=== PATIENT | male | born 1965 | race Caucasian/White ===

== ENCOUNTER → 2021-05-24 | Outpatient (CLI) | payer SELFPAY | END | disposition home or self-care (01) | LOC: LAB SHORT 11:30 | DX: R30.0 Dysuria (principal) | CPT/HCPCS: 87086 ==

== ENCOUNTER 2022-08-30 12:04 | Inpatient (IN) | payer OTHER ==
[~2022-08-30] VITALS: Ht 185.4 cm; Wt 104.4 kg
[2022-08-30 13:01] LABS: BASOPHILS ABSOLUTE AUTO 0.03 K/mm3 (0.00-0.23); BASOPHILS PERCENT AUTO 0 % (0-2); EOSINOPHILS ABSOLUTE AUTO 0.01 K/mm3 (0.00-0.68); EOSINOPHILS PERCENT AUTO 0 % (0-6); Hematocrit 46.5 % (37.0-53.0); Hemoglobin 16.7 g/dL (13.5-17.5); IMMATURE GRAN ABSOLUTE AUTO 0.02 K/mm3 (0.00-0.10); IMMATURE GRAN PERCENT AUTO 0 % (0-1); LYMPHOCYTES ABSOLUTE AUTO 1.85 K/mm3 (0.84-5.20); LYMPHOCYTES PERCENT AUTO 21 % (21-46); MONOCYTES ABSOLUTE AUTO 0.51 K/mm3 (0.16-1.47); MONOCYTES PERCENT AUTO 6 % (4-13); Mean Corpuscular HGB Conc 35.9 g/dL (31.5-36.5); Mean Corpuscular Volume 92 fL (80-100); Mean Platelet Volume 9.4 fL (9.1-12.4); NEUTROPHILS ABSOLUTE AUTO 6.22 K/mm3 (1.96-9.15); NEUTROPHILS PERCENT AUTO 72 % (41-73); Platelet Count 309 K/mm3 (150-400); RDW Coefficient Variation 11.6 % (11.7-14.2); RDW Standard Deviation 39.6 fL (35.1-46.3); Red Blood Cell Count 5.06 M/mm3 (4.30-5.90); White Blood Cell Count 8.64 K/mm3 (4.00-11.30)
[2022-08-30 13:05] LABS: Albumin, Blood 4.4 g/dL (3.4-5.0); Albumin/Globulin Ratio 1.3 (0.8-1.8); Bilirubin, Total 0.6 mg/dL (0.1-1.0); Bun/Creatinine Ratio 11.6 (12.0-20.0); Calcium, Blood 9.5 mg/dL (8.5-10.1); Creatinine, Blood 1.12 mg/dL (0.60-1.20); Globulin, Blood 3.4 g/dL (2.2-4.0); Total Protein, Blood 7.8 g/dL (6.4-8.2)
[2022-08-30 13:16] LABS: Magnesium, Blood 2.5 mg/dL (1.6-2.4)
[2022-08-30 13:18] LABS: Thyroid Stimulating Hormone 0.825 uIU/mL (0.360-4.800)
[2022-08-30 16:40] LABS: Source, Urine Clean Catch
[2022-08-30 16:50] LABS: Appearance, Urine Clear (Clear); Bilirubin, Urine Neg (Neg); Blood, Urine 1+ (Neg); Color, Urine Yellow (P-Yellow); Glucose Qualitative, Urine Neg (Neg); Ketones, Urine 1+ (Neg); Leukocyte Esterase, Urine Neg (Neg); Nitrite, Urine Neg (Neg); Protein, Urine Neg (Neg); Specific Gravity, Urine 1.015 (1.003-1.022); Urobilinogen, Urine NORM (Normal)
[2022-08-30] MEDS ORDERED: LISI20 PO (16:51)
[2022-08-30 17:16] LABS: U Amphetamine Screen Not Detected; U Barbituate Screen Not Detected; U Benzodiazapine Screen Not Detected; U Buprenorphine Screen Not Detected; U Cannabinoids Screen Not Detected; U Cocaine Screen Not Detected; U Methadone Screen Not Detected; U Methamphetamine Screen Not Detected; U Opiates Screen Not Detected; U Oxycodone Screen Not Detected; U Phencyclidine Screen Not Detected; U Propoxyphene Screen Not Detected
[2022-08-30 17:17] LABS: Bacteria Few /hpf; Squamous Epithelial Cells Rare /hpf (Few); White Blood Cells, Urine 0-2 /hpf (0-5)
--- NOTE | 2022-08-30 18:30 | NUR ---
ADMIT/SHIFT SUMMARY: PATIENT ADMIT TO PCU 12. ABLE TO STAND AND TRANSFER. NEURO WNL. DENIES N/T. PERRLA. DENIES ANY PAIN. ON ROOM AIR SATING MID-HIGH 90'S. DENIES SOB. LUNGS SOUNDING CLEAR. TELE SHOWING AFIB WITH HR 110-160'S. CARDIZEM GTT IN PLACE AT 15MG/HR. NO SIGNS OF EDEMA. BP STABLE. DENOES CHEST PAIN/PRESSURE/PALPITATIONS. AT BEDSIDE AND HELPING WITH ADMIT QUESTIONS. DENIES ABDOMINAL PAIN/NAUSEA. EATING WNL. URINAL PROVIDED FOR PATIENT. BED ALARM IN PLACE FOR SAFETY. ORIENTED TO ROOM/UNIT/CALL LIGHT. NS INFUSING PER EMAR. MED REC COMPLETE. WILL CONTINUE TO MONITOR AND REPORT OFF TO ONCOMING RN.
[2022-08-31 04:41] LABS: International Normalized Ratio 1.21; Prothrombin Time Results 12.5 Sec (9.7-11.5)
--- NOTE | 2022-08-31 06:00 | NUR ---
PT ANGRY, ABRUBT AND ARGUMENTATIVE WITH STAFF OVERNIGHT, ANXIOUS AND UNCOOPERATIVE WITH MOST CARES, CARDIZEM GTT AT 15MG/HR, AFIB 110-120'S, AT ONE POINT CARDIZEM WAS TITRATED DOWN TO 10 FOR AFIB IN 70'S HOWEVER RATE INCREASED AGAIN AND TITRATED BACK UP TO 15, ADEQUATE UO, NO BM, AFEBRILE, A FEW BORDERLINE/SOFT B/P'S, AT BS VERY APPRECIATIVE, APOLOGETIC AND HELPFUL
[2022-08-31 09:00] LABS: Albumin, Blood 3.5 g/dL (3.4-5.0); Albumin/Globulin Ratio 1.2 (0.8-1.8); Bilirubin, Total 0.7 mg/dL (0.1-1.0); Bun/Creatinine Ratio 13.4 (12.0-20.0); Calcium, Blood 8.7 mg/dL (8.5-10.1); Creatinine, Blood 1.12 mg/dL (0.60-1.20); Globulin, Blood 2.9 g/dL (2.2-4.0); Magnesium, Blood 2.3 mg/dL (1.6-2.4); Potassium, Blood 4.1 mmol/L (3.5-5.5); Total Protein, Blood 6.4 g/dL (6.4-8.2)
--- NOTE | 2022-08-31 17:51 | NUR ---
PT SUMMARY: PT HAS BEEN ANXIOUS MOST OF THE SHIFT, RECEIVED ONE TIME DOSE OF ATIVAN 0.5MG PO FOLLOWED BY TYLENOL FOR HEADACHE PT HAD A COUPLE OF HOURS OF SLEEP. HAS BEEN AT THE BEDSIDE ALL SHIFT. PT ASKS QUESTIONS ABOUT PLAN OF CARE INFORMATION PROVIDED. PT HAS BEEN ON CARDIZEM GTT ALL SHIFT AT 15MG/HR ECHO WAS NOT DONE TODAY DUE TO AFIB RVR HRR RANGING 110-170'S PT WAS STARTED ON PO METOPROLOL 25MG A DOSE OF TARTRATE AND SUCCINATE, WAS ALSO GIVEN A DOSE ON CARIZEM PO 30MG AND NONE WAS EFFECTIVE, ORDER RECEIVED TO START PT ON AMIODARONE GTT, BOLUS OF 150MG ONGOING AT THIS TIME, SBP SOFT 90-110, PT DENIES ANY CHEST PAIN BUT HAS SOME PALPITATIONS AND BACK PAIN ALSO RELIEVED WITH TYLENOL, PT HAS BEEN ON RA SATTING ABOVE 95%, AFEBRILE. AMIODARONE GTT NOW RUNNING AT 34.8MLS/HR TO RUN FOR 6 HRS AND TITRATE PER ORDERS. EATING AND DRINKING WITH NO ISSUES, PT HAD A BED BATH TODAY HELPED AND ASSISTED. NO OTHER ISSUES ENCOUNTERED, PT ABLE TO MAKE NEEDS KNOWN, CALL LIGHTS IN REACH WILL REPORT TO ONCOMING SHIFT
--- NOTE | 2022-08-31 21:07 | NUR ---
ASSUMPTION OF CARE THIS RN ASSUMED CARE OF PATIENT AT 1900. REPORT TAKEN FROM JAIDA RN. PATIENT IN AFIB WITH HR FLUCTUATING FROM 110-150'S. AMIO GTT BOLUS COMPLETED WITH GTT INFUSING PER EMAR. BP STABLE. AFEBRILE. SPO2 >92% ON RA. PULSES STRONG THROUGHOUT. PATIENT EXPRESSING ANXIETY TO THIS RN ABOUT MEDICATION CHANGES AND BLOOD DRAWS DUE TO PHOBIA OF NEEDLES. THIS RN PROVIDED THERAPEUTIC LISTENING AND REASSURANCE TO PATIENT. AT BEDSIDE WITH PATIENT AND STAYING OVERNIGHT TO ASSIST WITH PATIENT'S ANXIETY. THIS RN REINFORCED EDUCATION ABOUT CARDIAC MEDICATIONS THAT ARE BEING GIVEN TO HELP WITH RATE CONTROL. BED IN LOWEST POSITION AND CALL LIGHT WITHIN REACH. THIS RN WILL CONTINUE TO MONITOR AND PROVIDE INTVERNTIONS NEEDED/ORDERED DURING THIS SHIFT.
--- NOTE | 2022-08-31 22:33 | NUR ---
PATIENT UPDATE PATIENT CALLED THIS RN INTO ROOM STATING THAT HE FELT LIKE HE HAD MORE OF A COUGH AND WAS "WHEEZING". THIS RN ASSESSED VITALS AND LUNG SOUNDS TO FIND LUNG SOUNDS WERE CLEAR. AFTER SPEAKING TO PATIENT AND FURTHER THAT PATIENT DESCRIBED MORE OF A TIGHT FEELING IN CHEST LIKE HE GETS WITH ANXIETY ATTACKS AND STATED THAT HE FELT LIKE HE WAS GETTING "SHAKY" LIKE HE DOES WITH ANXIETY ATTACKS WELL. SPO2 >90%. BP STABLE. AFIB WITH HR 110-150'S. THIS RN CALLED MD MALLOY ABOUT SYMPTOMS. ORDER FOR PO ATIVAN.
[2022-09-01 03:47] LABS: Hematocrit 41.6 % (37.0-53.0); Hemoglobin 14.8 g/dL (13.5-17.5); Mean Corpuscular HGB 33.3 pg (26.0-34.0); Mean Corpuscular HGB Conc 35.6 g/dL (31.5-36.5); Mean Corpuscular Volume 94 fL (80-100); Mean Platelet Volume 9.2 fL (9.1-12.4); Platelet Count 239 K/mm3 (150-400); RDW Coefficient Variation 11.9 % (11.7-14.2); RDW Standard Deviation 41.3 fL (35.1-46.3); Red Blood Cell Count 4.44 M/mm3 (4.30-5.90); White Blood Cell Count 9.52 K/mm3 (4.00-11.30)
[2022-09-01 04:48] LABS: Bun/Creatinine Ratio 10.4 (12.0-20.0); Calcium, Blood 8.7 mg/dL (8.5-10.1); Creatinine, Blood 1.25 mg/dL (0.60-1.20); Potassium, Blood 4.2 mmol/L (3.5-5.5)
--- NOTE | 2022-09-01 05:09 | NUR ---
SHIFT SUMMARY NO ACUTE CHANGES OVERNIGHT. PATIENT CONTINUES TO BE IN AFIB WITH HR FLUCTUATING 110-160'S. BP STABLE. AFEBRILE. AMIO GTT CHANGED TO HALF RATE AT 0000 AND IS INFUSING AT 0.5MG/MIN. LS CLEAR THROUGHOUT. PATIENT WAS PLACED ON 2L VIA NC WHILE SLEEPING DUE TO DESATTING TO THE HIGH 80'S; PATIENT WAS SNORING AND REPORTS BEING TOLD HE NEEDED A SLEEP STUDY FOR APNEA BEFORE. PATIENT DENIES CHEST PRESSURE AND PALPITATIONS BUT REPORTS A BURNING SENSATION IN HIS EPIGASTRIC AREA WHILE LYING FLAT; PATIENT STATES HE GETS THIS AT HOME WELL AND USUALLY BECOMES BETTER WHEN HE SITS UP AND MOVES AROUND. PATIENT SBA TO BEDSIDE COMMODE. AT BEDSIDE THROUGHOUT THE NIGHT. BOTH AND PATIENT EXPRESSED ANXIETY THROUGHOUT THIS SHIFT. PATIENT WITH ANXIETY ABOUT BOWEL MOVEMENTS, MOVING LINES, CHANGING GOWNS, AND MOST CARE GIVEN TO PATIENT. THIS RN NOTES THAT WHEN PATIENT DISCUSSES HIS ANXIETY HIS HR INCREASES TO 150-170'S. PATIENT WAS ABLE TO SLEEP AFTER PO ATIVAN GIVEN EARLIER IN THE SHIFT. PATIENT HAS BEEN AGGITATED AND ANXIOUS WITH CARE BUT REMAINS COOPERATIVE WITH PLAN OF CARE. EDUCATED REPEATEDLY ABOUT MEDICATIONS AND PLAN OF CARE. PATIENT APPEARS TO MISUNDERSTAND AND FORGET EDUCATION FREQUENTLY. BED IN LOWEST POSITION AND CALL LIGHT WITHIN REACH. THIS RN WILL CONTINUE TO MONITOR UNTIL SHIFT CHANGE AT 0700.
--- NOTE | 2022-09-01 11:54 | NUR ---
Echocardiogram completed.
[2022-09-01 12:20] LABS: Anti-Xa UFH, PHA Monitoring 0.18 IU/mL; International Normalized Ratio 1.13; Prothrombin Time Results 11.8 Sec (9.7-11.5)
--- NOTE | 2022-09-01 17:16 | NUR ---
PT SUMMARY: PT STILL REMAIN ANXIOUS AND GOT REALLY MORE ANXIOUS WHEN PT WAS INFORMED ABOUT GETTING CARDIOVERSION DONE, WHEEL FILLER CONSULTED, DR STRONG WAS ABLE TO DISCUSS THE PLAN AND PROCEDURE WITH BOTH AND THE PT. [facility] AND CARDIOVERSION DONE, PT WAS STARTED ON HEPARIN GTT AT 15U/KG/HR, REMAINS ON AMIODARONE GTT. HRR STILL AFIB RATE 110-170'S, HRR INCREASES WITH EXERTION, PT HAD COUPLE EPISODE OF 9-12 BEATS OF VTACH BOTH TIMES WERE PT STANDING UP TO USE THE BEDSIDE COMMODE, SBP 110'S, SATS ABOVE 92% ON RA, AFEBRILE. PT WAS INSTRUCTED TO NOT STAND UP AND USE THE BEDSIDE COMMODED UNTIL THE PROCEDURE IS DONE. PT DOESNT SEEM TO RETAIN INSTRUCTION DUE TO ANXIETY. ALL NEW MEDICATION, INSTRUCTION AND INFORMATION WAS ALWAYS ADDRESSED TO THE PT AND THE . PT GOT MORE FRUSTRATED AFTER THE PT WAS SENT BACK FROM THE [facility] AND PROCEDURE WAS RESCHEDULED. PT WILL SAY MEAN STUFF TO THIS NURSE OUT OF FRUSTRATION, ISSUE WAS ADDRESSED TO THE CHARGE NURSE, PT WAS WARNED ABOUT IT. AWAITING FOR PT TO COME BACK FROM THE PROCEDURE REPORT GIVEN TO FRANC MAYA
--- NOTE | 2022-09-01 17:53 | NUR ---
PATIENT FAMILY AT THE BEDSIDE. PATIENT WAKING NICELY. 95% SAT ON ROOM AIR. TALKING WITH FAMILY. PATIENT RETURNED TO PCU # 12. SBAR GIVEN TO ZULMA NOE
--- NOTE | 2022-09-01 20:46 | NUR ---
ASSUMPTION OF CARE THIS RN ASSUMED CARE OF PATIENT AT 1900. REPORT TAKEN FROM FRANC MAYA. PATIENT WITH FAMILY AT BEDSIDE AT TIME OF SHIFT CHANGE. PATIENT ON AIRVO 50L 80% FIO2 WITH SPO2 >90%. LABORED BREATHING NOTED WITHOUT TACHYPNEA. BP STABLE. ST ON THE MONITOR WITH HR 110-120'S. AFEBRILE. PATIENT ABLE TO MAKE NEEDS KNOWNS. ALERT/LETHARGIC AND ORIENTED X3 WITH CONFUSION ABOUT WHAT [place] SHE IS IN BUT KNOWS SHE IS IN THE HOSPITAL AND REMEMBERS PLAN OF CARE AND SITUATION. HOB ELEVATED. MEDICATING FOR PAIN AND NAUSEA PER EMAR. BED IN LOWEST POSITION AND CALL LIGHT WITHIN REACH. THIS RN WILL CONTINUE TO MONITOR AND PROVIDE INTERVENTIONS NEEDED/ORDERED DURING THIS SHIFT.
--- NOTE | 2022-09-01 20:59 | NUR ---
ASSUMPTION OF CARE THIS RN ASSUMED CARE OF PATIENT AT 1900. REPORT TAKEN FROM FRANC MAYA. PATIENT IN NSR WITH HR 80'S. DENIES CHEST PAIN/PRESSURE, PALPITATIONS, AND SOB. REPORTS SORENESS AT SITE OF PAD PLACEMENT FOR CARDIOVERSION PERFORMED TODAY. BP STABLE. AFEBRILE. SPO2 >92% ON RA. DISCUSSED PLAN OF CARE AND EDUCATION REGARDING MEDICATIONS AND DUISCHARGE PLANNING THAT IS LIKELY TOMORROW 09/02. PATIENT ABLE TO MAKE NEEDS KNOWN. PATIENT TOLERATING PO MEDS AND WATER AT THIS TIME. THIS RN WILL BE AT BEDSIDE SHORTLY TO TRY PUDDING/JELLO AND ENSURE PATIENT IS APPROPRIATE TO SWALLOW FOLLOWING SETH THAT WAS PERFORMED THIS AFTERNOON. HEP GTT DC'D PER MD ORDER PRIOR TO SHIFT CHANGE. AT BEDSIDE. BED IN LOWEST POSITION AND CALL LIGHT WITHIN REACH. THIS RN WILL CONTINUE TO MONITOR AND PROVIDE INTERVENTIONS NEEDED/ORDERED DURING THIS SHIFT.
[2022-09-02 04:30] LABS: BASOPHILS ABSOLUTE AUTO 0.02 K/mm3 (0.00-0.23); BASOPHILS PERCENT AUTO 0 % (0-2); EOSINOPHILS ABSOLUTE AUTO 0.04 K/mm3 (0.00-0.68); EOSINOPHILS PERCENT AUTO 1 % (0-6); Hematocrit 38.5 % (37.0-53.0); Hemoglobin 14.1 g/dL (13.5-17.5); IMMATURE GRAN ABSOLUTE AUTO 0.02 K/mm3 (0.00-0.10); IMMATURE GRAN PERCENT AUTO 0 % (0-1); LYMPHOCYTES ABSOLUTE AUTO 1.59 K/mm3 (0.84-5.20); LYMPHOCYTES PERCENT AUTO 20 % (21-46); MONOCYTES ABSOLUTE AUTO 0.68 K/mm3 (0.16-1.47); MONOCYTES PERCENT AUTO 9 % (4-13); Mean Corpuscular HGB 33.7 pg (26.0-34.0); Mean Corpuscular HGB Conc 36.6 g/dL (31.5-36.5); Mean Corpuscular Volume 92 fL (80-100); Mean Platelet Volume 9.1 fL (9.1-12.4); NEUTROPHILS ABSOLUTE AUTO 5.57 K/mm3 (1.96-9.15); NEUTROPHILS PERCENT AUTO 70 % (41-73); Platelet Count 227 K/mm3 (150-400); RDW Coefficient Variation 11.9 % (11.7-14.2); RDW Standard Deviation 40.2 fL (35.1-46.3); Red Blood Cell Count 4.19 M/mm3 (4.30-5.90); White Blood Cell Count 7.92 K/mm3 (4.00-11.30)
--- NOTE | 2022-09-02 04:41 | NUR ---
SHIFT SUMMARY PATIENT DENIES CHEST PAIN/PRESSURE AND PALPITATIONS DURING THIS SHIFT. REMAINS NSR WITH HR 70-80'S. EKG OBTAINED AT 0400. BP STABLE. AFEBRILE. SPO2 >92%. PATIENT PLACED ON 2L VIA NC WHILE SLEEPING DUE TO DESATTING OF O2 SPO2 NOTED ON MONITOR OF 86-89%. PATIENT FREQUENTLY STATING THAT HE IS ANXIOUS TO GET HOME. PATIENT WAS ABLE TO SLEEP DURING THIS SHIFT WITHOUT NEEDING MEDICATION FOR ANXIETY HE DID ON PREVIOUS NIGHTS. PATIENT REPORTS SORENESS WHERE PADS WERE PLACED FOR CARDIOVERSION. PATIENT IS ALERT AND ORIENTED FULLY AND ABLE TO MAKE NEEDS KNOWN. BED IN LOWEST POSITION AND CALL LIGHT WITHIN REACH. THIS RN WILL CONTINUE TO MONITOR UNTIL SHIFT CHANGE AT 0700.
[2022-09-02 04:53] LABS: Anion Gap 5 mmol/L (6-16); Blood Urea Nitrogen 12 mg/dL (8-24); Bun/Creatinine Ratio 10.2 (12.0-20.0); CHOL/HDL RATIO 3.5; CO2, Blood 24 mmol/L (21-32); Calcium, Blood 8.8 mg/dL (8.5-10.1); Chloride, Blood 112 mmol/L (98-108); Cholesterol 132 mg/dL (50-200); Creatinine, Blood 1.18 mg/dL (0.60-1.20); Glomerular Filtration Rate 72 (60-); Glucose, Blood 99 mg/dL (70-99); HDL Cholesterol 38 mg/dL (>39); Low Density Lipoprotein Chol 76 mg/dL (0-110); Potassium, Blood 3.8 mmol/L (3.5-5.5); Sodium, Blood 141 mmol/L (136-145); Triglycerides 89 mg/dL (30-160); Very Low Density Lipoprot Chol 17 mg/dL (6-32)
[2022-09-02] MEDS ORDERED: TYLENOL325 M1 PO (12:14)
[2022-09-02] MEDS ORDERED: Amiodarone HCl200 MG PO (12:16)
[2022-09-02] MEDS ORDERED: Lisinopril2.5 MG PO (12:16)
[2022-09-02] MEDS ORDERED: XARELTO20 MG PO (12:17)
[2022-09-02] MEDS ORDERED: METO25ER PO (12:17)
== END 2022-09-02 13:13 | disposition home or self-care (01) | DRG 309 ==
LOC: ER 12:04 → ERHOLD 12:05 → PCU 12:05
PROVIDERS: Emergency Medicine; Internal Medicine; Internal Medicine Cardiovascular Disease; Nurse Practitioner Acute Care; Physician Assistant; ADMIT Internal Medicine
PROC: B24BZZ4 Ultrasonography of Heart with Aorta, Transesophageal (ICD-10-PCS; 2022-09-01)
PROC: 5A2204Z Restoration of Cardiac Rhythm, Single (ICD-10-PCS; principal; 2022-09-01 17:00)
DX: I48.91 Unspecified atrial fibrillation (principal); I50.20 Unspecified systolic (congestive) heart failure; G47.30 Sleep apnea, unspecified; F41.9 Anxiety disorder, unspecified; E66.9 Obesity, unspecified; F10.11 Alcohol abuse, in remission; I11.0 Hypertensive heart disease with heart failure; I47.1 Supraventricular tachycardia; E78.00 Pure hypercholesterolemia, unspecified; F17.220 Nicotine dependence, chewing tobacco, uncomplicated; R73.9 Hyperglycemia, unspecified; Z88.0 Allergy status to penicillin; Z79.811 Long term (current) use of aromatase inhibitors; Z71.6 Tobacco abuse counseling; Z98.890 Other specified postprocedural states; Z87.19 Personal history of other diseases of the digestive system
CPT/HCPCS: 36415; 71045; 80048; 80053; 80061; 81001; 83036; 83735; 84443; 84484; 85025; 85027; 85520; 85610; 85730; 92960; 93005; 93010; 93306; 93312; 93325; 94760; 96365; 96366; 96372; 96376; 99291-25; A9270; G0378; J0282; J1644; J1650; J2704; J7030; J7060

== ENCOUNTER → 2023-04-13 | Outpatient (CLI) | payer OTHER ==
[~2023-04-13] MED LIST: Amiodarone HCl200 MG PO; LISI20 PO; Lisinopril2.5 MG PO; METO25ER PO; TYLENOL325 M1 PO; XARELTO20 MG PO
[2023-04-13 19:50] LABS: BASOPHILS ABSOLUTE AUTO 0.04 K/mm3 (0.00-0.23); BASOPHILS PERCENT AUTO 1 % (0-2); EOSINOPHILS ABSOLUTE AUTO 0.13 K/mm3 (0.00-0.68); EOSINOPHILS PERCENT AUTO 2 % (0-6); Hematocrit 43.8 % (37.0-53.0); Hemoglobin 15.1 g/dL (13.5-17.5); IMMATURE GRAN ABSOLUTE AUTO 0.01 K/mm3 (0.00-0.10); IMMATURE GRAN PERCENT AUTO 0 % (0-1); LYMPHOCYTES ABSOLUTE AUTO 2.27 K/mm3 (0.84-5.20); LYMPHOCYTES PERCENT AUTO 30 % (21-46); MONOCYTES ABSOLUTE AUTO 0.46 K/mm3 (0.16-1.47); MONOCYTES PERCENT AUTO 6 % (4-13); Mean Corpuscular HGB 32.8 pg (26.0-34.0); Mean Corpuscular HGB Conc 34.5 g/dL (31.5-36.5); Mean Corpuscular Volume 95 fL (80-100); Mean Platelet Volume 9.2 fL (9.1-12.4); NEUTROPHILS ABSOLUTE AUTO 4.57 K/mm3 (1.96-9.15); NEUTROPHILS PERCENT AUTO 61 % (41-73); Platelet Count 295 K/mm3 (150-400); RDW Coefficient Variation 12.1 % (11.7-14.2); RDW Standard Deviation 42.4 fL (35.1-46.3); Red Blood Cell Count 4.61 M/mm3 (4.30-5.90); White Blood Cell Count 7.48 K/mm3 (4.00-11.30)
[2023-04-13 20:17] LABS: Alanine Aminotransfer (ALT/SGP 39 U/L (12-78); Albumin, Blood 4.4 g/dL (3.4-5.0); Albumin/Globulin Ratio 1.2 (0.8-1.8); Alk Phos 98 U/L (50-136); Anion Gap 8 mmol/L (6-16); Aspartate Aminotrans (AST/SGOT 27 U/L (12-37); Bilirubin, Total 0.3 mg/dL (0.1-1.0); Blood Urea Nitrogen 21 mg/dL (8-24); Bun/Creatinine Ratio 17.9 (12.0-20.0); CHOL/HDL RATIO 3.3; CO2, Blood 23 mmol/L (21-32); Calcium, Blood 9.3 mg/dL (8.5-10.1); Chloride, Blood 109 mmol/L (98-108); Cholesterol 197 mg/dL (50-200); Creatinine, Blood 1.17 mg/dL (0.60-1.20); Globulin, Blood 3.7 g/dL (2.2-4.0); Glomerular Filtration Rate 73 (60-); Glucose, Blood 98 mg/dL (70-99); HDL Cholesterol 59 mg/dL (>39); LDL/HDL RATIO 1.8; Low Density Lipoprotein Chol 107 mg/dL (0-110); Potassium, Blood 4.1 mmol/L (3.5-5.5); Sodium, Blood 140 mmol/L (136-145); Total Protein, Blood 8.1 g/dL (6.4-8.2); Triglycerides 157 mg/dL (30-160); Very Low Density Lipoprot Chol 31 mg/dL (6-32)
== END ==
LOC: LAB SHORT 16:00 → LAB 16:00
PROVIDERS: Family Medicine
DX: I10 Essential (primary) hypertension (principal); E78.2 Mixed hyperlipidemia
CPT/HCPCS: 80053; 80061; 85025